=== PATIENT | female | born 1935 | race Caucasian/White ===

== ENCOUNTER → 2017-04-12 | Outpatient (CLI) | payer MEDICARE ==
--- NOTE | 2017-04-13 09:52 | MAM ---
History: Well woman exam. Date of exam: 04/12/2017 Services provided: Bilateral full field digital screening mammography. CAD, the images were reviewed with R2 computer aided detection. FINDINGS: Glandular tissue is scattered glandular contour. Comparison with 2010 exam. No dominant mass, architectural distortion or clustered microcalcification. IMPRESSION: Benign exam Recommendation: Routine annual mammography BIRAD CATEGORY: 2 BENIGN Electronically signed by: Sharon Adkins MD 04/13/2017 9:51 AM CDT Workstation: [facility]
== END | disposition home or self-care (01) ==
LOC: MAMMO 09:04
PROVIDERS: ATTEND Obstetrics & Gynecology
DX: Z12.31 Encounter for screening mammogram for malignant neoplasm of breast (principal)

== ENCOUNTER → 2017-08-17 | Outpatient (CLI) | payer MEDICARE | END | disposition home or self-care (01) | LOC: BFHH 12:00 | PROVIDERS: ATTEND Family Medicine | DX: R53.0 Neoplastic (malignant) related fatigue (principal); I10 Essential (primary) hypertension ==

== ENCOUNTER → 2017-10-20 | Outpatient (CLI) | payer MEDICARE | END | disposition home or self-care (01) | LOC: BFHH 11:54 | PROVIDERS: ATTEND Family Medicine | DX: I50.9 Heart failure, unspecified (principal); M32.10 Systemic lupus erythematosus, organ or system involvement unspecified; M06.9 Rheumatoid arthritis, unspecified ==

== ENCOUNTER 2018-12-09 17:04 | Emergency (ER) | payer MEDICARE ==
[2018-12-09 19:28] VITALS: TEMP 97.2
[2018-12-09] MEDS ORDERED: METOPROLOL TARTRATE INJ 5 MG/5 ML VIAL IV ONE ×2 (19:31→21:06)
[2018-12-09] MEDS ORDERED: SODIUM CHLORIDE 0.9% 1000ML 1,000 ML IVS PRN (20:16)
[2018-12-09] MEDS ORDERED: SODIUM CHLORIDE 0.9% 1000ML 1,000 ML IVS ONE (20:35)
--- NOTE | 2018-12-09 20:39 | ED.PDOC ---
History of Present Illness - General Chief Complaint: General Stated Complaint: Rt leg pain and generalized pain/numbness Time Seen by Provider: 12/09/18 19:04 Source: patient Exam Limitations: no limitations - History of Present Illness Initial Comments: Patient is a poor historian. She presents with vague complaints about her right hip being in pain. She then added that its actually her whole right leg that is in pain. She then said that she can't feel her right foot. She is able to move her right hip, leg and foot. She has atrial fibrillation but refuses to take her anticoagulant because she said that if she stumps her toe then she will bleed to . She also refuses to take her metoprolol for rate control because she says "it will kill me". No other specific complaints can be obtained from the patient. Timing/Duration: unsure Severity: mild Improving Factors: nothing Worsening Factors: nothing Associated Symptoms: other - see HPI Allergies/Adverse Reactions: Allergies NO KNOWN ALLERGY Allergy (Verified 12/09/18 19:36) Review of Systems - Review of Systems Constitutional: States: no symptoms reported EENTM: States: no symptoms reported Respiratory: States: no symptoms reported Cardiology: States: no symptoms reported Gastrointestinal/Abdominal: States: no symptoms reported Genitourinary: States: no symptoms reported Musculoskeletal: States: see HPI Skin: States: no symptoms reported Neurological: States: see HPI Endocrine: States: no symptoms reported Hematologic/Lymphatic: States: no symptoms reported Past Medical History (General) - Patient Medical History Hx Stroke: No Hx Cardiac Disorders: Yes - A Fib Hx Congestive Heart Failure: No Hx Hypertension: Yes Hx Diabetes: No Hx Gastroesophageal Reflux: Yes Surgical History: tonsillectomy, Hysterectomy, other - Vaccination History Hx Tetanus, Diphtheria Vaccination: No Hx Influenza Vaccination: Yes Hx Pneumococcal Vaccination: Yes Immunizations Up to Date: Yes - Social History Hx Tobacco Use: No Hx Alcohol Use: No Hx Substance Use: No Hx Depression: No - Female History Patient is a Female of Child Bearing Age (10 -59 yrs old): No Family Medical History - Family History Mother Family History: Unknown Living Status: Unknown Physical Exam - Physical Exam General Appearance: Alert Eye Exam: bilateral normal Ears, Nose, Throat: normal ENT inspection Neck: non-tender, full range of motion, supple Respiratory: lungs clear, normal breath sounds Cardiovascular/Chest: tachycardia, irregularly irregular Gastrointestinal/Abdominal: normal bowel sounds, non tender, soft Back Exam: no CVA tenderness Extremity: other - decreased sensation in right foot. 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 5/5 strength to dorsiflexion/plantarflexion/inversion/eversion of both feet as well as 5/5 flexion/extension of the toes. 5/5 strength for AROM of hips and bilateral upper extremities. Skin Exam: other - feet are cool to touch but normal color. Lymphatic: no adenopathy Progress - Progress Progress: 12/09/18 23:03 Laboratory Tests 12/09/18 12/09/18 12/09/18 19:31 19:31 19:31 WBC 5.1 RBC 3.89 L Hgb 10.7 L Hct 33.8 L MCV 86.7 MCH 27.4 MCHC 31.6 L RDW 17.8 H Plt Count 120 L MPV 10.0 Absolute Neuts (auto) 3.70 Absolute Lymphs (auto) 0.80 L Absolute Monos (auto) 0.50 Absolute Eos (auto) 0.10 Absolute Basos (auto) 0.00 Neutrophils % 73.6 Lymphocytes % 15.1 L Monocytes % 8.8 Eosinophils % 1.8 Basophils % 0.7 PT 13.4 H INR 1.34 H PTT (SP) 27.5 Sodium 138 Potassium 5.3 H Chloride 109 Carbon Dioxide 20 L Anion Gap 14.3 BUN 55 H Creatinine 1.73 H BUN/Creatinine Ratio 31.8 H Random Glucose 95 Serum Osmolality 290.6 Calcium 9.1 Total Bilirubin 0.9 AST 100 H ALT 40 Alkaline Phosphatase 63 Creatine Kinase 3481 H* CK-MB (CK-2) 82.2 H* CK-MB (CK-2) % 2.36 Troponin I 0.11 H* B-Natriuretic Peptide Serum Total Protein 7.7 Albumin 4.2 Globulin 3.5 Albumin/Globulin Ratio 1.2 12/09/18 19:32 WBC RBC Hgb Hct MCV MCH MCHC RDW Plt Count MPV Absolute Neuts (auto) Absolute Lymphs (auto) Absolute Monos (auto) Absolute Eos (auto) Absolute Basos (auto) Neutrophils % Lymphocytes % Monocytes % Eosinophils % Basophils % PT INR PTT (SP) Sodium Potassium Chloride Carbon Dioxide Anion Gap BUN Creatinine BUN/Creatinine Ratio Random Glucose Serum Osmolality Calcium Total Bilirubin AST ALT Alkaline Phosphatase Creatine Kinase CK-MB (CK-2) CK-MB (CK-2) % Troponin I B-Natriuretic Peptide 598.0 H* Serum Total Protein Albumin Globulin Albumin/Globulin Ratio EKG showed atrial fibrillation with no ST changes nor LBBB. Troponin 0.11 was likely due to high cardiac output. Patient was given Lopressor 5 mg IV x two and the heart rate came down from the 130s to 100s. Ankle systolic pressure was not measurable on the right but was 117 on the left. Noting the CK as well, it was recommended to the patient that we transport her to [facility] for evaluation by a vascular surgeon. She refused and signed out AMA. Departure - Departure Clinical Impression: Atrial fibrillation with rapid ventricular response, Vascular disorder of lower extremity Disposition: Left Against Medical Advice Condition: Fair Departure Forms: ED Discharge - Pt. Copy, Patient Portal Self Enrollment Diet: other - as per your regular doctor Activity: other - as per your regular doctor Referrals: MARLENI WEEKS [Primary Care Provider] - 1-2 Weeks
--- NOTE | 2018-12-09 21:12 | RAD ---
EXAM: Chest,1 View CLINICAL INDICATION: 83-year-old female with tachycardia. TECHNIQUE: Single view, AP portable chest was obtained. COMPARISON: None. FINDINGS: Unremarkable cardiac and mediastinal silhouette. Heart size is normal. Tortuous atherosclerotic thoracic aorta. Lungs are clear without focal opacity, pneumothorax or pleural effusions. The visualized bones are within normal limits. IMPRESSION: No acute cardiopulmonary abnormalities. Electronically signed by: Allyson Valdovinos MD 12/09/2018 9:08 PM SURGERY SPECIALIST
--- NOTE | 2018-12-09 21:13 | RAD ---
EXAM: Hip,Right 2 Views (accession [id number]), Tibia/Fibula,Right (accession [id number]), Knee,Right 2 or More Views (accession [id number]) CLINICAL INDICATION: 83-year-old female with pain. COMPARISON: None. TECHNIQUE: Two views of the RIGHT hip were obtained in AP and lateral projection. Four views of the LEFT femur were obtained in AP and lateral projection. Two views of the RIGHT knee were obtained in AP, and lateral projection. Two views of the tibia fibula were obtained in AP and lateral projection. FINDINGS: The bones appear to be diffusely demineralized. RIGHT hip and femur: There is no fracture or dislocation. Mild degenerative changes are noted with narrowing of the femoral acetabular joint space compatible with mild degenerative change. The joint spaces are preserved. No soft tissue abnormalities are seen. RIGHT knee: Severe degenerative changes are noted of the RIGHT knee with narrowing of the femoral tibial joint compartment, tricompartmental osteophytes and sharpening of the tibial spines. Moderate suprapatellar joint effusion. RIGHT tibia-fibula: No fracture or dislocation. Calcification present throughout the soft tissues raising the question of phleboliths or soft tissue calcification of uncertain etiology. IMPRESSION: 1. The bones appear to be diffusely demineralized limiting assessment for subtle fracture. 2. Degenerative change without acute fracture or dislocation. 3. Moderate suprapatellar joint effusion. Electronically signed by: Allyson Valdovinos MD 12/09/2018 9:10 PM [facility]
--- NOTE | 2018-12-09 21:13 | RAD ---
EXAM: Hip,Right 2 Views (accession [id number]), Tibia/Fibula,Right (accession [id number]), Knee,Right 2 or More Views (accession [id number]) CLINICAL INDICATION: 83-year-old female with pain. COMPARISON: None. TECHNIQUE: Two views of the RIGHT hip were obtained in AP and lateral projection. Four views of the LEFT femur were obtained in AP and lateral projection. Two views of the RIGHT knee were obtained in AP, and lateral projection. Two views of the tibia fibula were obtained in AP and lateral projection. FINDINGS: The bones appear to be diffusely demineralized. RIGHT hip and femur: There is no fracture or dislocation. Mild degenerative changes are noted with narrowing of the femoral acetabular joint space compatible with mild degenerative change. The joint spaces are preserved. No soft tissue abnormalities are seen. RIGHT knee: Severe degenerative changes are noted of the RIGHT knee with narrowing of the femoral tibial joint compartment, tricompartmental osteophytes and sharpening of the tibial spines. Moderate suprapatellar joint effusion. RIGHT tibia-fibula: No fracture or dislocation. Calcification present throughout the soft tissues raising the question of phleboliths or soft tissue calcification of uncertain etiology. IMPRESSION: 1. The bones appear to be diffusely demineralized limiting assessment for subtle fracture. 2. Degenerative change without acute fracture or dislocation. 3. Moderate suprapatellar joint effusion. Electronically signed by: Allyson Valdovinos MD 12/09/2018 9:10 PM [facility]
--- NOTE | 2018-12-09 21:13 | RAD ---
EXAM: Hip,Right 2 Views (accession [id number]), Tibia/Fibula,Right (accession [id number]), Knee,Right 2 or More Views (accession [id number]) CLINICAL INDICATION: 83-year-old female with pain. COMPARISON: None. TECHNIQUE: Two views of the RIGHT hip were obtained in AP and lateral projection. Four views of the LEFT femur were obtained in AP and lateral projection. Two views of the RIGHT knee were obtained in AP, and lateral projection. Two views of the tibia fibula were obtained in AP and lateral projection. FINDINGS: The bones appear to be diffusely demineralized. RIGHT hip and femur: There is no fracture or dislocation. Mild degenerative changes are noted with narrowing of the femoral acetabular joint space compatible with mild degenerative change. The joint spaces are preserved. No soft tissue abnormalities are seen. RIGHT knee: Severe degenerative changes are noted of the RIGHT knee with narrowing of the femoral tibial joint compartment, tricompartmental osteophytes and sharpening of the tibial spines. Moderate suprapatellar joint effusion. RIGHT tibia-fibula: No fracture or dislocation. Calcification present throughout the soft tissues raising the question of phleboliths or soft tissue calcification of uncertain etiology. IMPRESSION: 1. The bones appear to be diffusely demineralized limiting assessment for subtle fracture. 2. Degenerative change without acute fracture or dislocation. 3. Moderate suprapatellar joint effusion. Electronically signed by: Allyson Valdovinos MD 12/09/2018 9:10 PM [facility]
--- NOTE | 2018-12-09 21:13 | RAD ---
EXAM: Foot,Right 3 Views CLINICAL INDICATION: 83-year-old female with pain. TECHNIQUE: Three views RIGHT foot were obtained in AP, lateral and oblique projections COMPARISON: None. FINDINGS: The bones appear to be diffusely demineralized limiting assessment for subtle fracture. There is no fracture or dislocation. The joint spaces are preserved. No soft tissue abnormalities are seen. Hallux valgus deformity. Degenerative change of the first digit metatarsal phalangeal joint. Small plantar heel spur. Achilles tendon enthesophyte. Calcification within the soft tissues versus phleboliths. IMPRESSION: No acute radiographic abnormality. Electronically signed by: Allyson Valdovinos MD 12/09/2018 9:09 PM [facility]
--- NOTE | 2018-12-09 22:09 | CT ---
CLINICAL HISTORY: numbness in right foot COMPARISON: None. TECHNIQUE: CT HEAD WITHOUT IV CONTRAST on 12/09/2018 8:50 PM EAR NOSE THROAT SURGEON This exam was performed according to our departmental dose-optimization program, which includes automated exposure control, adjustment of the mA and/or kV according to patient size and/or use of iterative reconstruction technique. FINDINGS: There is no acute hemorrhage, mass effect or midline shift. There is mild encephalomalacia in the inferior right cerebellum with minimal involvement of the posterior left cerebellum. There is no hydrocephalus. There is no significant volume loss for age. There are mild patchy hypodensities within the periventricular and subcortical white matter, consistent with microangiopathic ischemic changes. The calvarium is intact. Orbits and globes are unremarkable. The paranasal sinuses are clear. Mastoid air cells are clear. IMPRESSION: No acute intracranial findings. 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 Electronically signed by: Joel Taylor MD 12/09/2018 10:06 PM EAR NOSE THROAT SURGEON
[2018-12-09 23:40] VITALS: BP 164/102; O2SAT 98
== END 2018-12-09 23:39 | disposition left against medical advice (07) ==
LOC: ER 17:04
DX: I48.91 Unspecified atrial fibrillation (principal); R00.0 Tachycardia, unspecified; I73.9 Peripheral vascular disease, unspecified; M25.551 Pain in right hip; M79.604 Pain in right leg; R20.0 Anesthesia of skin; I10 Essential (primary) hypertension; K21.9 Gastro-esophageal reflux disease without esophagitis; Z53.29 Procedure and treatment not carried out because of patient's decision for other reasons; Z79.899 Other long term (current) drug therapy; Z91.14 Patient's other noncompliance with medication regimen
CPT/HCPCS: 36415; 70450; 71045; 73502; 73551; 73560; 73590; 73630; 80053; 82550; 82553; 83880; 84484; 85025; 85610; 85730; 93005; J7030

== ENCOUNTER → 2018-12-13 | Outpatient (CLI) | payer MEDICARE ==
--- NOTE | 2018-12-13 17:11 | US ---
EXAM DESCRIPTION: Extremity,Lower RT Arteries: Ultrasound. CLINICAL HISTORY: PVD COMPARISON: None. TECHNIQUE: Doppler evaluation of the right lower extremity arterial flow waveforms and velocities. FINDINGS: Arterial waveforms in the right lower extremity are triphasic from the right common femoral artery through the right femoral artery. Biphasic in the right popliteal artery. Monophasic in the right peroneal artery. Blunted monophasic in the right DIRECTOR OF SEARCH ENGINE OPTIMIZATION. No flow right DPA. Comments: No color flow in the right vertebral artery, DPA, right DIRECTOR OF SEARCH ENGINE OPTIMIZATION, or right peroneal arteries. Significant drop-off in velocity in the right calf arteries. Irregular rhythm noted in the waveforms. 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 Electronically signed by: Celio Marcano MD 12/13/2018 5:08 PM [facility]
== END ==
LOC: RAD 13:24
PROVIDERS: ATTEND Nuclear Medicine Nuclear Cardiology
DX: I73.9 Peripheral vascular disease, unspecified (principal)

== ENCOUNTER 2019-10-24 13:06 | Emergency (ER) | payer MEDICARE ==
--- NOTE | 2019-10-24 13:10 | ED.PDOC ---
History of Present Illness - General Chief Complaint: Lower Extremity Injury Stated Complaint: SOB AND LE EDEMA Time Seen by Provider: 10/24/19 13:10 Source: patient, RN notes reviewed, Vital Signs reviewed, EMS notes reviewed - History of Present Illness Initial Comments: Patient presents for evaluation of worsening dyspnea over the past few days. She has had a non-productive cough. She denies chest pain or fevers. Has noticed orthopnea. Does note that her legs have been red for about two months now. Denies any recent travel, surgeries, or hx of blood clots. Denies any other recent sick contacts. Allergies/Adverse Reactions: Allergies NO KNOWN ALLERGY Allergy (Verified 12/09/18 19:36) Review of Systems - Review of Systems Constitutional: Denies: fever Respiratory: States: cough, short of breath Cardiology: States: edema. Denies: chest pain Gastrointestinal/Abdominal: Denies: abdominal pain Genitourinary: Denies: hematuria Musculoskeletal: Denies: back pain Skin: States: rash Neurological: Denies: headache Hematologic/Lymphatic: Denies: blood clots Past Medical History (General) - Patient Medical History Hx Stroke: No Hx Cardiac Disorders: Yes - A Fib Hx Congestive Heart Failure: No Hx Hypertension: Yes Hx Diabetes: No Hx Gastroesophageal Reflux: Yes - Vaccination History Hx Tetanus, Diphtheria Vaccination: No Hx Influenza Vaccination: Yes Hx Pneumococcal Vaccination: Yes - Social History Hx Tobacco Use: No Hx Alcohol Use: No Hx Substance Use: No Hx Depression: No Family Medical History - Family History Mother Family History: Unknown Living Status: Unknown Physical Exam - Physical Exam General Appearance: Alert, Other - Appears uncomfortable Eyes, Ears, Nose, Throat Exam: PERRL/EOMI Neck: full range of motion, supple, normal inspection Respiratory: no accessory muscle use, crackles - bilaterally Cardiovascular/Chest: normal peripheral pulses, tachycardia, irregularly irregular, other Gastrointestinal/Abdominal: non tender, soft, no organomegaly, no pulsatile mass Extremity: pedal edema Neurologic: alert, normal mood/affect, oriented x 3 Skin Exam: other - Erythema to bilateral feet. Slight warmth Progress - Progress Progress: Patient presented by EMS for SOB. EKG was significant for atrial fibrillation with RVR (rate of 107). There was isolated t wave inversion in high lateral lead. There was signs of pulmonary edema with pleural effusion on CXR. CBC was not significant for leukocytosis. There was no significant anemia. There was no signs of hepatic or biliary injury on CMP. BNP and troponin were found to be elevated. Rate was controlled, therefore cardizem was not administered. Patient was given 40mg IV Lasix for CHF. Patient was discussed with Dr. Quintanilla (cardiology) in [place], who will consult on patient. Patient was transferred to ER at [place] for further evaluation and admission. - Results/Orders Results/Orders: Reporting MD: Luiz Caceres Patient Relations Liaison date: Dictation date: EXAM DESCRIPTION: Chest,1 View CLINICAL HISTORY: 84 years Female, SOB COMPARISON: December 09, 2018 TECHNIQUE: AP portable chest. FINDINGS: Single view of the chest shows significant deterioration from prior study. Marked enlargement of the cardiac silhouette with hazy layering pleural effusions and basilar edema is present with central vascular congestion and early alveolar edema left parahilar greater than right parahilar region. I am overload and congestive failure strongly suggested. IMPRESSION: Markedly abnormal chest with cardiomegaly central vascular congestion and basilar pulmonary edema with developing basilar moderate effusions. Electronically signed by: Luiz Caceres MD 10/24/2019 1:36 PM SERVICE NOW DEVELOPER 10/24/19 13:15 EKG STAT Laboratory Results WBC 5.9 K/mm3 (4.8-10.8) 10/24/19 13:20 RBC 4.40 M/mm3 (4.20-5.40) 10/24/19 13:20 Hgb 10.8 gm/dL (12.0-16.0) L 10/24/19 13:20 Hct 35.0 % (36.0-47.0) L 10/24/19 13:20 MCV 79.6 fl (81.0-99.0) L 10/24/19 13:20 MCH 24.6 pg (27.0-31.0) L 10/24/19 13:20 MCHC 30.9 g/dL (33.0-37.0) L 10/24/19 13:20 RDW 20.2 % (11.5-14.5) H 10/24/19 13:20 Plt Count 226 K/mm3 (130-400) 10/24/19 13:20 MPV 9.1 fl (7.40-10.4) 10/24/19 13:20 Absolute Neuts (auto) 4.70 K/uL (1.8-6.8) 10/24/19 13:20 Absolute Lymphs (auto) 0.60 K/uL (1.0-3.4) L 10/24/19 13:20 Absolute Monos (auto) 0.60 K/uL (0.2-0.8) 10/24/19 13:20 Absolute Eos (auto) 0.00 K/uL (0.0-0.4) 10/24/19 13:20 Absolute Basos (auto) 0.00 K/uL (0.0-0.1) 10/24/19 13:20 Neutrophils % 78.8 % (42.0-78.0) H 10/24/19 13:20 Lymphocytes % 10.5 % (20.0-50.0) L 10/24/19 13:20 Monocytes % 9.7 % (2.0-9.0) H 10/24/19 13:20 Eosinophils % 0.5 % (1.0-5.0) L 10/24/19 13:20 Basophils % 0.5 % (0.0-2.0) 10/24/19 13:20 Normal RBC Morphology 2+aniso 2+hypochromia 2+microcytosis 1+poikilocytosis 1+ovalocytes Plts devin adequate Stain quality accept 10/24/19 13:20 Normal RBC Morphology 2+aniso 2+hypochromia 2+microcytosis 1+poikilocytosis 1+ovalocytes Plts devin adequate Stain quality accept 10/24/19 13:20 Normal RBC Morphology 2+aniso 2+hypochromia 2+microcytosis 1+poikilocytosis 1+ovalocytes Plts devin adequate Stain quality accept 10/24/19 13:20 Normal RBC Morphology 2+aniso 2+hypochromia 2+microcytosis 1+poikilocytosis 1+ovalocytes Plts devin adequate Stain quality accept 10/24/19 13:20 Normal RBC Morphology 2+aniso 2+hypochromia 2+microcytosis 1+poikilocytosis 1+ovalocytes Plts devin adequate Stain quality accept 10/24/19 13:20 Normal RBC Morphology 2+aniso 2+hypochromia 2+microcytosis 1+poikilocytosis 1+ovalocytes Plts devin adequate Stain quality accept 10/24/19 13:20 Normal RBC Morphology 2+aniso 2+hypochromia 2+microcytosis 1+poikilocytosis 1+ovalocytes Plts devin adequate Stain quality accept 10/24/19 13:20 Sodium 135 mmol/L (135-145) 10/24/19 13:20 Potassium 4.2 mmol/L (3.6-5.0) 10/24/19 13:20 Chloride 97 mmol/L (101-111) L 10/24/19 13:20 Carbon Dioxide 26 mmol/L (21-31) 10/24/19 13:20 Anion Gap 16.2 (12-18) 10/24/19 13:20 BUN 28 mg/dL (7-18) H 10/24/19 13:20 Creatinine 1.02 mg/dL (0.6-1.3) 10/24/19 13:20 BUN/Creatinine Ratio 27.5 (10-20) H 10/24/19 13:20 Random Glucose 120 mg/dL (70-105) H 10/24/19 13:20 Serum Osmolality 276.8 mOsm/L (275-295) 10/24/19 13:20 Calcium 9.2 mg/dL (8.4-10.2) 10/24/19 13:20 Total Bilirubin 1.2 mg/dL (0.2-1.0) H 10/24/19 13:20 AST 30 IU/L (10-42) 10/24/19 13:20 ALT 19 IU/L (10-60) 10/24/19 13:20 Alkaline Phosphatase 65 IU/L (42-121) 10/24/19 13:20 Troponin I 0.07 ng/mL (0.01-0.05) H* 10/24/19 13:20 B-Natriuretic Peptide 1200.0 pg/ml (0-100) H* 10/24/19 13:20 Serum Total Protein 7.1 gm/dL (6.4-8.2) 10/24/19 13:20 Albumin 3.2 g/dl (3.2-5.5) 10/24/19 13:20 Globulin 3.9 gm/dL (2.3-3.5) H 10/24/19 13:20 Albumin/Globulin Ratio 0.8 (1.1-1.9) L 10/24/19 13:20 - EKG/XRAY/CT Comments: atrial fibrillation with rvr rate of [address] changes. Departure - Departure Clinical Impression: Atrial fibrillation with rapid ventricular response, Pleural effusion Acute CHF (congestive heart failure) Qualifiers: Heart failure type: unspecified Qualified Code(s): I50.9 - Heart failure, unspecified Acute respiratory failure Qualifiers: Respiratory failure complication: hypoxia Qualified Code(s): J96.01 - Acute respiratory failure with hypoxia Disposition: Transfer to Hospital Condition: Fair Departure Forms: ED Discharge - Pt. Copy, Patient Portal Self Enrollment Instructions: DI for Leg Pain Referrals: MARLENI WEEKS [Primary Care Provider] - 1-2 Weeks Comments: Sunny Law D.O. [facility] #[id number]
--- NOTE | 2019-10-24 13:38 | RAD ---
EXAM DESCRIPTION: Chest,1 View CLINICAL HISTORY: 84 years Female, SOB COMPARISON: December 09, 2018 TECHNIQUE: AP portable chest. FINDINGS: Single view of the chest shows significant deterioration from prior study. Marked enlargement of the cardiac silhouette with hazy layering pleural effusions and basilar edema is present with central vascular congestion and early alveolar edema left parahilar greater than right parahilar region. I am overload and congestive failure strongly suggested. IMPRESSION: Markedly abnormal chest with cardiomegaly central vascular congestion and basilar pulmonary edema with developing basilar moderate effusions. Electronically signed by: Luiz Caceres MD 10/24/2019 1:36 PM MANUFACTURING ENGINEERING DIRECTOR
[2019-10-24] MEDS: FUROSEMIDE INJ 40 MG/4 ML VIAL IV ONE (14:52)
[2019-10-24] MEDS: fentaNYL CITRATE INJ 50 MCG/ML AMP IV ONE (14:52)
[2019-10-24 15:31] VITALS: BP 128/97; TEMP 96.3; O2SAT 95
== END 2019-10-24 15:31 | disposition short-term general hospital (02) ==
LOC: ER 13:06
DX: J96.01 Acute respiratory failure with hypoxia (principal); I50.9 Heart failure, unspecified; I48.91 Unspecified atrial fibrillation; R00.0 Tachycardia, unspecified; I11.0 Hypertensive heart disease with heart failure; K21.9 Gastro-esophageal reflux disease without esophagitis
CPT/HCPCS: 71045; 80053; 83880; 84484; 85025; 93005; J1940; J3010